=== PATIENT | male | born 1955 | race Asian ===

== ENCOUNTER 2018-02-13 12:58 | Inpatient (IN) | payer OTHER ==
[~2018-02-13] VITALS: Ht 167.6 cm; Wt 59.0 kg
[~2018-02-13 12:58] MED LIST: PHEN100C4 PO
--- NOTE | 2018-02-13 12:58 | NUR ---
Patient BIBA ACLS, transferred to bed 9. RN evaluating patient at bedside.
--- NOTE | 2018-02-13 13:00 | NUR ---
62Y/M BIBA FROM FIELD FOR POSSIBLE SYNCOPAL EPISODE AWAKE AND ALERT ON ARRIVAL NON GEORGIAN SPEAKING. ACCORDING TO [facility], PT WAS AT THE LAUNDRY MAT WITH A SYNCOPE EPISODE BEFORE A [facility] CALLED 911. HX: HTN RX: UNKNOWN ( UNBLE TO OBTAIN FROM PATIENT)
[2018-02-13 13:01] VITALS: BP 188/118
--- NOTE | 2018-02-13 13:47 | NUR ---
Patient being evaluated by physician at bedside.
[2018-02-13 14:30] LABS: BASOPHILS # (AUTO) 0.1 K/uL (0.00-0.22); BASOPHILS % (AUTO) 0.9 % (0.0-2.0); EOSINOPHILS # (AUTO) 0.1 K/uL (0-0.4); HEMATOCRIT 48.4 % (36-52); HEMOGLOBIN 15.7 g/dL (12.0-18.0); LYMPHOCYTES # (AUTO) 1.2 K/uL (2.0-11.5); LYMPHOCYTES % (AUTO) 18.2 % (20.5-51.1); MEAN CORPUSCULAR HEMOGLOBIN 29 pg (27-31); MEAN CORPUSCULAR HGB CONC 32 g/dL (33-37); MEAN CORPUSCULAR VOLUME 90.5 fL (80-94); MONOCYTES # (AUTO) 0.5 K/uL (0.8-1.0); MONOCYTES % (AUTO) 8.3 % (1.7-9.3); NEUTROPHILS # (AUTO) 4.7 K/uL (1.8-7.7); NEUTROPHILS % (AUTO) 71.6 % (42.2-75.2); PLATELET COUNT (AUTO) 231 K/uL (140-450); RED BLOOD CELL COUNT(AUTO) 5.35 MIL/uL (4.20-6.10); RED CELL DISTRIBUTION WIDTH 14.4 % (11.6-13.7); WHITE BLOOD COUNT (AUTO) 6.5 K/uL (4.8-10.8)
[2018-02-13 14:42] LABS: APPEARANCE,URINE CLEAR (CLEAR); COLOR,URINE YELLOW (YELLOW)
[2018-02-13 14:43] LABS: BILIRUBIN,URINE NEGATIVE (NEGATIVE); BLOOD, URINE NEGATIVE (NEGATIVE); LEUKOCYTE ESTERASE ,URINE NEGATIVE (NEGATIVE); NITRITE, URINE NEGATIVE (NEGATIVE); UGLUCOSE NEGATIVE (NEGATIVE)
[2018-02-13 15:05] LABS: ANION GAP 9.6 (8-16); CARBON DIOXIDE 30.3 mmol/L (21-32); CREATININE 0.7 mg/dL (0.7-1.3); POTASSIUM 3.9 mmol/L (3.5-5.1); TOTAL BILIRUBIN 0.4 mg/dL (0.0-1.0)
[2018-02-13 15:08] LABS: CREATINE KINASE MB 0.8 ng/mL (0-3.6)
[2018-02-13] MEDS ORDERED: LORazepam 2 MG/ML VIAL IM/IVP PRN (15:55)
[2018-02-13] MEDS ORDERED: HYDROcodone/APAP 5/325 MG 1 TAB TAB PO PRN (15:55)
[2018-02-13] MEDS ORDERED: NACL 0.9% 1,000 ML IV SCH (15:55)
[2018-02-13] MEDS ORDERED: ONDANSETRON 4 MG/2 ML VIAL IM/IVP PRN (15:55)
[2018-02-13] MEDS ORDERED: ACETAMINOPHEN 325 MG TAB PO PRN (15:55)
[2018-02-13] MEDS ORDERED: DOCUSATE SODIUM 100 MG GELCAP PO PRN (15:55)
[2018-02-13] MEDS ORDERED: MECLIZINE 25 MG TAB PO PRN (16:00)
[2018-02-13] MEDS ORDERED: amLODIPine 5 MG TAB PO SCH (16:30)
[2018-02-13 16:35] LABS: BARBITURATE, URINE NEG. ng/ml (NEG <=200); BENZODIAZEPINE, URINE NEG. ng/mL (NEG <=200); CANNABINOID, URINE NEG. ng/mL (NEG <=50); COCAINE, URINE NEG. ng/mL (NEG <=300); OPIATE, URINE NEG. ng/mL (NEG <=2000); PHENCYCLIDINE SCREEN,URINE NEG. ng/mL (NEG <=25)
[2018-02-13 16:44] LABS: MAGNESIUM 2.1 mg/dL (1.8-2.4); PHOSPHORUS 2.8 mg/dL (2.5-4.9); THYROID STIMULATING HORMONE 1.21 uIU/mL (0.34-3.74)
--- NOTE | 2018-02-13 17:07 | NUR ---
CALLED [facility] GAVE REPORT TO LENS ASSORTER, ETA 30 FOR EMS TRANSPORT
--- NOTE | 2018-02-13 17:07 | NUR ---
Lyla santos in ED - 02/13/18 at 1708 by MEDJOSE CALLED [facility] GAVE REPORT TO CASTING INSPECTOR, ETA 30 FOR EMS TRANSPORT
--- NOTE | 2018-02-13 17:16 | NUR ---
Dr. Payan evaluating patient at bedside.
--- NOTE | 2018-02-13 17:28 | NUR ---
ULTRA SOUND AT BEDSIDE
[2018-02-13 17:30] LABS: PROTHROMBIN TIME 9.9 secs (10.8-13.4)
--- NOTE | 2018-02-13 18:49 | NUR ---
Patient appears to be resting comfortably in bed. Vital Signs within normal limits. Respirations even and unlabored.
[2018-02-13] MEDS ORDERED: ENALAPRILAT 2.5 MG/2 ML VIAL IVP SCH (19:00)
--- NOTE | 2018-02-13 19:30 | NUR ---
PT IS AAO TO SELF AND . PT WAS FOUND AT A LAUNDRY MATE AND SEEMED CONFUSED TO BYSTANDARDS. PT STATES TO BE IN 0/10 PAIN AT THIS TIME. IS RESTING IN BED; BED IN LOWER LOCKED POSITION; PENDING ADMIT TO THE FLOOR. WILL CONTINUE TO MONITOR.
--- NOTE | 2018-02-13 21:10 | NUR ---
Admited to TELE. Will go to room 122B. Belongings list completed. PT AMBULATED W/STEADY GATE TO BED. Report to KIESHA LUCAS. VSS AT THIS TIME.
[2018-02-13 21:13] VITALS: BP 158/108
--- NOTE | 2018-02-13 21:13 | NUR ---
RECEIVED BEDSIDE REPORT FROM LABORER DAIRY FARM, PATIENT IN BED, AAOX3, ON RA, CALM AND COOPERATIVE, NO SIGNS OF ACUTE DISTRESS, V/S TAKEN NOTED BP 158/108 HR 71 DENIES PAIN. IV IN RIGHT HAND 20G, SL, PATIENT, DRESSING INTACT. PATIENT AMBULATED TO RESTROOM, STEADY GAIT, ADMISSION QUESTIONS ANSWERED, PATIENT ABLE TO SPEAK SOME TUNISIAN. EXPLAINED PLAN OF CARE UPDATED BORED, LEFT BED IN LOWEST POSITION, BED ALARM ON, CALL LIGHT WITHIN REACH. WILL CONTINUE TO MONITOR.
--- NOTE | 2018-02-13 21:45 | NUR ---
[facility] COLLECTED AND SENT TO LAB
--- NOTE | 2018-02-13 21:59 | NUR ---
[facility] NOT SHOWING ON [facility], WILL GIVE SCHEDULED LISINOPRIL.
--- NOTE | 2018-02-13 22:03 | NUR ---
STATED NACL IVF AT 40 ML/HR ADMINISTERED IVP LISINOPRIL ACCORDING TO MD ORDER. WILL CONTINUE TO MONITOR.
--- NOTE | 2018-02-13 23:03 | NUR ---
REASSESSED BP 155/60 HR 60. WILL CONTINUE TO MONITOR.
[2018-02-14] VITALS: BP 157/87
--- NOTE | 2018-02-14 00:10 | NUR ---
NOTED BP 157/87 HR 58. WILL CONTINUE TO MONITOR.
[2018-02-14 04:00] VITALS: BP 154/96
--- NOTE | 2018-02-14 04:00 | NUR ---
NOTIFIED DR TORRES ABOUT CONSISTENT HIGH BP. DR TORRES WILL ENDORSE TO DAY SHIFT TEAM.
--- NOTE | 2018-02-14 06:00 | NUR ---
UNSUCCESSFUL ATTEMPT TP DRAW BLOOD. NO COFFEE ATTENDANT IN HOSPITAL.
--- NOTE | 2018-02-14 07:38 | NUR ---
ENDORSED PATIENT TO DAY SHIFT NURSE, PATIENT STABLE.
--- NOTE | 2018-02-14 07:39 | NUR ---
RECEIVED REPORT FROM HEALTH CARE COACH NURSE. PT IN STABLE CONDITION. RESPIRATIONS EVEN AND UNLABORED. IV INTACT AND PATENT. SAFETY MEASURES IN PLACE. CALL LIGHT AT BEDSIDE. BED IN LOW POSITION. WILL CONTINUE TO MONITOR.
[2018-02-14 08:00] VITALS: BP 158/96
--- NOTE | 2018-02-14 08:36 | NUR ---
PATIENT HAS BEEN SCREENED AND CATEGORIZED MODERATE NUTRITION RISK. PATIENT WILL BE SEEN WITHIN 3-5 DAYS OF ADMISSION. 02/16/18 02/18/[address]
[2018-02-14] MEDS ORDERED: MECL-272 PO (08:58)
[2018-02-14] MEDS ORDERED: LISI-424 PO (08:58)
[2018-02-14] MEDS ORDERED: LISINOPRIL 5 MG TAB PO SCH (09:00)
[2018-02-14 10:15] LABS: BASOPHILS # (AUTO) 0.1 K/uL (0.00-0.22); BASOPHILS % (AUTO) 2.9 % (0.0-2.0); HEMATOCRIT 49.4 % (36-52); HEMOGLOBIN 16.1 g/dL (12.0-18.0); LYMPHOCYTES % (AUTO) 21.8 % (20.5-51.1); MEAN CORPUSCULAR HEMOGLOBIN 30 pg (27-31); MEAN CORPUSCULAR HGB CONC 33 g/dL (33-37); MEAN CORPUSCULAR VOLUME 90.7 fL (80-94); MONOCYTES # (AUTO) 0.4 K/uL (0.8-1.0); NEUTROPHILS # (AUTO) 3.2 K/uL (1.8-7.7); NEUTROPHILS % (AUTO) 66.3 % (42.2-75.2); PLATELET COUNT (AUTO) 272 K/uL (140-450); RED BLOOD CELL COUNT(AUTO) 5.45 MIL/uL (4.20-6.10); RED CELL DISTRIBUTION WIDTH 14.3 % (11.6-13.7); WHITE BLOOD COUNT (AUTO) 4.8 K/uL (4.8-10.8)
[2018-02-14 10:33] LABS: CHOL/HDL RATIO 4.6 (1-4.5)
[2018-02-14] MEDS ORDERED: LISINOPRIL 20 MG TAB PO SCH (10:34)
--- NOTE | 2018-02-14 11:55 | NUR ---
PT WAS WALKING DOWN MAIN HALLWAY FULLY DRESSED. PT WAS ADVISED THAT HE WAS NOT AT THE TIME PROPERLY DISCHARGED. PT PROCEEDED BACK TO ROOM 122B.
[2018-02-14] MEDS ORDERED: amLODIPine 5 MG TAB PO SCH (12:00)
--- NOTE | 2018-02-14 12:14 | NUR ---
REMOVED IV, LUMEN INTACT.
--- NOTE | 2018-02-14 12:15 | NUR ---
DISCHARGE INSTRUCTIONS AND PHARMACY PRESCRIPTIONS WERE GIVEN TO PT. PT STATED UNDERSTANDING OF DISCHARGE INFORMATION. ALL QUESTIONS WERE ANSWERED AT THIS TIME. PT REFUSED WHEELCHAIR. BUS PASS WAS GIVEN AT THIS TIME. PT WAS WALKED TO THE LOBBY. PT IN STABLE CONDITION.
[2018-02-14 12:22] LABS: ANION GAP 17.6 (8-16); CARBON DIOXIDE 26.4 mmol/L (21-32); CREATININE 0.8 mg/dL (0.7-1.3)
--- NOTE | 2018-02-14 16:36 | NUR ---
GAVE ORDERED DUE MEDICATIONS, PT TOLERATED WELL. WILL CONTINUE TO MONITOR. Addendum: 02/14/18 at 1638 by Mera Cole RN GAVE MEDICATION AT 0900
[2018-02-15] MEDS ORDERED: LISINOPRIL 20 MG TAB PO SCH (09:00)
== END 2018-02-14 12:15 | disposition home or self-care (01) | DRG 199 ==
LOC: MED 12:58 → MTU 16:00 → MERGE 16:00
PROVIDERS: ADMIT General Practice; ATTEND General Practice
DX: I16.1 Hypertensive emergency (principal); G90.8 Other disorders of autonomic nervous system; E86.0 Dehydration; I10 Essential (primary) hypertension; G40.909 Epilepsy, unspecified, not intractable, without status epilepticus; R74.8 Abnormal levels of other serum enzymes; Z56.0 Unemployment, unspecified; Z79.899 Other long term (current) drug therapy; Z87.891 Personal history of nicotine dependence
CPT/HCPCS: 36415; 70450; 71045; 76705; 80048; 80053; 80305; 81003; 82140; 82550; 82553; 83036; 83735; 83880; 84100; 84134; 84443; 84484; 85025; 85610; 85730; 87081; 93005; 93880; 97116; 99285; J3490; J7030; Q0092

== ENCOUNTER 2018-07-02 20:40 | Emergency (ER) | payer OTHER ==
[~2018-07-02] VITALS: Ht 167.6 cm; Wt 68.0 kg
[2018-07-02 20:40] VITALS: BP 161/97
[~2018-07-02 20:40] MED LIST changes: +LISI-424 PO; +MECL-272 PO
--- NOTE | 2018-07-02 20:40 | NUR ---
PATIENT BIB ALS TO ER BED 11.
--- NOTE | 2018-07-02 20:45 | NUR ---
EKG PERFORMED AT BEDSIDE
--- NOTE | 2018-07-02 21:00 | NUR ---
PT IS A 63 Y/O MALE WHO PRESENTS TO THE ED C/O CHEST PAIN. PER [facility] PT WAS FOUND OUTSIDE THE [facility] ST[facility] AND C/O CHEST PAIN. PT REPORTS 5/10 ACHING CHEST PAIN THAT DOES NOT RADIATE. PT WAS GIVEN 324MG ASPIRIN AND 0.1 MG NITRO X1 PT DENIES COUGH, SOB, N/V/D. PT AWAKE AND ALERT, PT ARMENIAN IS LIMITED AND ONLY SPEAKS MARSHALLESE. PT REPOSITIONED FOR COMFORT, BED IN LOWEST POSITION. ER MD DR. MORRIS NOTIFIED. WILL CONTINUE TO MONITOR. PMH---UNKNOWN ALLERGIES--UNKNOWN
--- NOTE | 2018-07-02 21:44 | NUR ---
PATIENT REFUSING XRAY AT THIS TIME. ER MD NOTIFIED.
--- NOTE | 2018-07-02 21:50 | NUR ---
PATIENT GIVEN URINE CUP TO URINE. AMBULATED WITH ASSIST TO BATHROOM. PT DID NOT URINATE IN CUP, VOIDED IN TOILET.
[2018-07-02 21:58] LABS: BASOPHILS # (AUTO) 0.1 K/uL (0.00-0.22); BASOPHILS % (AUTO) 1.8 % (0.0-2.0); EOSINOPHILS # (AUTO) 0.1 K/uL (0-0.4); EOSINOPHILS % (AUTO) 1.4 % (0.0-4.0); HEMATOCRIT 39.9 % (36-52); HEMOGLOBIN 13.4 g/dL (12.0-18.0); LYMPHOCYTES # (AUTO) 1.7 K/uL (2.0-11.5); LYMPHOCYTES % (AUTO) 32.9 % (20.5-51.1); MEAN CORPUSCULAR HEMOGLOBIN 30 pg (27-31); MEAN CORPUSCULAR HGB CONC 34 g/dL (33-37); MONOCYTES # (AUTO) 0.7 K/uL (0.8-1.0); MONOCYTES % (AUTO) 13.5 % (1.7-9.3); NEUTROPHILS # (AUTO) 2.5 K/uL (1.8-7.7); NEUTROPHILS % (AUTO) 50.4 % (42.2-75.2); PLATELET COUNT (AUTO) 264 K/uL (140-450); RED BLOOD CELL COUNT(AUTO) 4.54 MIL/uL (4.20-6.10); RED CELL DISTRIBUTION WIDTH 14.3 % (11.6-13.7)
--- NOTE | 2018-07-02 22:00 | NUR ---
DR. 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 PT STATES THAT HE CANNOT SLEEP.
--- NOTE | 2018-07-02 22:09 | NUR ---
XRAY AT BEDSIDE. Addendum: 07/02/18 at 2209 by MEDDCV XRAY AT BEDSIDE PERFORMING INTERVENTION. XRAY TAKEN BY [employer].
[2018-07-02 22:18] LABS: ANION GAP 11.1 (8-16); CARBON DIOXIDE 27.9 mmol/L (21-32); CREATININE 0.7 mg/dL (0.7-1.3)
[2018-07-02 22:24] LABS: ALBUMIN 3.6 g/dL (3.4-5.0); TOTAL BILIRUBIN 0.3 mg/dL (0.0-1.0)
--- NOTE | 2018-07-02 23:30 | NUR ---
SPOKE WITH REGARDING PT DISCHARGE. UTILIZED [employer] TRANSLATION PHONE. PT WILL BE PROVIDED HOMELESS PACKET, BUS PASS, MEAL AND BLANKET FOR DISCHARGE. CALLED RN APPEALS FOR RESOURCES.
[2018-07-03 00:05] VITALS: BP 160/95
--- NOTE | 2018-07-03 00:05 | NUR ---
Patient discharged with v/s stable. Written and verbal after care instructions given and explained. Patient alert, oriented and verbalized understanding of instructions. Ambulatory with steady gait. All questions addressed prior to discharge. ID band removed. Patient advised to follow up with PMD. Rx of BENADRYL given. Patient educated on indication of medication including possible reaction and side effects. Opportunity to ask questions provided and answered.
== END 2018-07-03 00:05 | disposition home or self-care (01) ==
LOC: MED 20:40
DX: R07.9 Chest pain, unspecified (principal); I10 Essential (primary) hypertension; Z79.899 Other long term (current) drug therapy
CPT/HCPCS: 36415; 71045; 80053; 83880; 84484; 85025; 93005; 99284